=== PATIENT | female | born 1955 | race Caucasian/White ===

== ENCOUNTER 2018-12-27 01:48 | Outpatient (CLI) | payer OTHER, SELFPAY ==
[2018-12-27 09:46] LABS: Glucose 105 mg/dL (70-100); TSH (W/Ref FT4) 3.25 uIU/mL (0.36-3.74)
== END 2018-12-27 02:08 ==
PROVIDERS: PCP Family Medicine; Visit Provider Family Medicine
DX: R73.01 Impaired fasting glucose (principal); E03.9 Hypothyroidism, unspecified
CPT/HCPCS: 36415; 82947; 83036; 84443

== ENCOUNTER 2019-12-20 02:43 | Outpatient (CLI) | payer MEDICARE, OTHER, SELFPAY ==
[2019-12-20 09:36] LABS: Anion Gap 7.5 mmol/L (3-11); BUN 19 mg/dL (7-18); CO2 27.5 mmol/L (21.0-32.0); CREATININE 0.83 mg/dL (0.55-1.02); Chloride 104 mmol/L (98-107); Glucose 105 mg/dL (74-106); Potassium 4.2 mmol/L (3.5-5.1); Sodium 139 mmol/L (136-145); TSH (W/Ref FT4) 4.09 uIU/mL (0.36-3.74)
[2019-12-20 09:48] LABS: Hemoglobin A1C 5.8 % (3.8-5.6)
[2019-12-20 09:54] LABS: FREE T4 1.11 ng/dL (0.76-1.46)
== END 2019-12-20 03:03 ==
PROVIDERS: PCP Family Medicine; Visit Provider Family Medicine
DX: R73.03 Prediabetes (principal); E03.9 Hypothyroidism, unspecified
CPT/HCPCS: 36415; 80048; 83036; 84439; 84443

== ENCOUNTER 2020-01-07 01:03 | Outpatient (CLI) | payer MEDICARE, OTHER, SELFPAY ==
--- NOTE | 2020-01-07 | DI.MAMMO_ITS ---
EXAM: MG MAMMO SCREENING CLINICAL HISTORY: SCREENING, PREVENTIVE [facility],Z00.00 TECHNIQUE: Mammograms were interpreted according to the usual protocol including computer analysis w [employer] system, tomosynthesis and C-view imaging. COMPARISON: FINDINGS: The breasts are of moderate density with fairly symmetrical distribution of fibroglandular tissue. N o dominant mass or clumped microcalcification is identified in either breast. The current examinatio n is compared with previous examinations including August 2017 and there has been no gross interval ch alexandra in appearance in comparison with the prior studies. IMPRESSION: No specific evidence of malignancy at this time. Routine screening examinations are suggested at yea rly intervals in this age group according to the ACS ACR guidelines. BI-RADS Category 1 - Negative Breast Density - Category B - Scattered areas of fibroglandular density
== END 2020-01-07 01:23 ==
PROVIDERS: PCP Family Medicine; Visit Provider Family Medicine
DX: Z12.31 Encounter for screening mammogram for malignant neoplasm of breast (principal); Z00.00 Encounter for general adult medical examination without abnormal findings; R92.2 Inconclusive mammogram
CPT/HCPCS: 77063; 77067

== ENCOUNTER 2020-03-23 11:52 | Outpatient (REF) | payer MEDICARE, OTHER, SELFPAY ==
[2020-03-23 18:26] LABS: TSH (W/Ref FT4) 0.51 uIU/mL (0.36-3.74)
== END 2020-03-23 12:12 ==
LOC: NCHCN 11:52
PROVIDERS: PCP Family Medicine; Visit Provider Family Medicine
DX: E03.9 Hypothyroidism, unspecified (principal)
CPT/HCPCS: 84443

== ENCOUNTER 2021-01-08 14:44 | Outpatient (REF) | payer MEDICARE, OTHER, SELFPAY ==
[2021-01-08 16:27] LABS: Hemoglobin A1C 5.9 % (<5.7)
[2021-01-08 16:34] LABS: Calculated LDL 156 mg/dL (<100); Cholesterol 255 mg/dL (<200); HDL Cholesterol 70 mg/dL (40-60); TSH (W/Ref FT4) 0.19 uIU/mL (0.36-3.74); Triglyceride 149 mg/dL (<150)
[2021-01-08 16:52] LABS: FREE T4 1.21 ng/dL (0.76-1.46)
== END 2021-01-08 14:45 | disposition home or self-care (01) ==
LOC: NCHCN 14:44
PROVIDERS: PCP Family Medicine; Visit Provider Family Medicine
DX: R73.03 Prediabetes (principal); E03.9 Hypothyroidism, unspecified
CPT/HCPCS: 80061; 83036; 84439; 84443

== ENCOUNTER 2021-01-28 01:28 | Outpatient (CLI) | payer MEDICARE, OTHER, SELFPAY ==
--- NOTE | 2021-01-28 | DI.DEXA_ITS ---
Exam(s) XR DEXA BONE DENSITY W/WO GAGE EXAM: XR DEXA BONE DENSITY W/WO GAGE CLINICAL HISTORY: MENOPAUSAL, Z78.0 TECHNIQUE: Routine DEXA evaluation of the lumbar spine, hip, or forearm. COMPARISON: No exams were available for comparison FINDINGS: Performed on a Hologic unit. Lateral image: No compression fracture evident. Lumbar Spine total T-score: -1.4 Hip total T-score:0.2 Independent reading at the femoral neck yields a T-score of -0 3 Forearm total T-score: -0.3 IMPRESSION: Bone mineral density measures in the osteopenia range. Fracture risk is moderate. Note: Any spine fracture indicates 5x risk for subsequent spine fracture and 2x risk for subsequent h ip fracture. World Health Organization criteria for BMD interpretation classify patients: Normal...... T- Score at or above -1.0 Osteopenic... T- Score between -1.0 and -2.5 Osteoporosis... T-Score at or below -2.5
== END 2021-01-28 01:48 ==
PROVIDERS: PCP Family Medicine; Visit Provider Family Medicine
DX: Z78.0 Asymptomatic menopausal state (principal); M85.88 Other specified disorders of bone density and structure, other site
CPT/HCPCS: 77080

== ENCOUNTER 2021-03-15 15:53 | Outpatient (REF) | payer MEDICARE, OTHER, SELFPAY ==
[2021-03-15 20:08] LABS: TSH (W/Ref FT4) 1.22 uIU/mL (0.36-3.74)
== END 2021-03-15 15:54 | disposition home or self-care (01) ==
LOC: NCHCN 15:53
PROVIDERS: PCP Family Medicine; Visit Provider Family Medicine
DX: E03.9 Hypothyroidism, unspecified (principal)
CPT/HCPCS: 84443

== ENCOUNTER → 2021-07-08 09:32 | Outpatient (BNVA) | payer MEDICARE, OTHER, SELFPAY | PROVIDERS: PCP Family Medicine; Referring Provider Family Medicine; Visit Provider Physical Therapy Assistant | DX: Z12.11 Encounter for screening for malignant neoplasm of colon (principal); Z86.010 Personal history of colon polyps ==

== ENCOUNTER 2021-07-23 01:11 | Outpatient (CLI) | payer MEDICARE, OTHER, SELFPAY ==
[2021-07-23 13:16] LABS: Source Nasal/Nares
[2021-07-23 17:39] LABS: COVID-19 PCR Negative (Negative)
== END 2021-07-23 01:12 | disposition home or self-care (01) ==
LOC: LBO 01:11
PROVIDERS: PCP Family Medicine; Visit Provider Surgery
DX: Z20.822 Contact with and (suspected) exposure to COVID-19 (principal)
CPT/HCPCS: 87635; U0005

== ENCOUNTER 2021-07-26 06:14 | Day surgery (SDC) | payer MEDICARE, OTHER, SELFPAY ==
[2021-07-26 06:15] VITALS: BP 165/83; PULSE 86; RESP 16; TEMP 36.5; O2SAT 98
--- NOTE | 2021-07-26 06:27 | W.COLOREPORT ---
Colonoscopy Report Date of procedure: 07/26/21 Pre-op diagnosis general: Colon cancer screening/ Hx of colon polyps Post-op diagnosis procedure note: same (and diverticulosis) Procedure: Colonoscopy Surgeon: Mary Lou Walker Anesthesia Type: General:No Airway Pathology: none sent Complications: None Disposition: same day Indications: The patient is here for Colonoscopy pre-op. Her last screening was in 2016 and was remarkable for tubular adenomatous polyps. She has no family history of colon cancer. She has not had any bowel habit changes. -Discussed colonoscopy bowel prep as well as the procedure. Discussed possible complications of the procedure to include bleeding, pain, perforation, missed small lesion/polyp, sore throat, aspiration and adverse reaction to the medications. Questions were answered to patient?s satisfaction. No guarantees were implied or given.? She will hold her Vitamin D and supplements x 5 days prior to her procedure. I spent 30 minutes in reviewing the record, seeing the patient, providing patient education, answering patient's questions and documenting in the medical record. P// Colonoscopy under sedation. Prep: Miralax/Dulcolax Procedure Start Time: 07:34 Procedure End Time: 07:58 Retraction Time: 10 minutes Findings: Mild Pandiverticulosis Procedure Description: After informed consent was obtained the patient was taken to the procedure room and placed in a left decubitous position. Monitors were applied and a time out was done. The patients name, date of , procedure, allergies to medications and metal in their body was reviewed. The patient was then sedated. Once sedated and comfortable a rectal exam was done. External exam was normal. Internal exam revealed a normal sphincter tone and no palpable masses. The scope was then introduced and retro-flexed. No internal hemorrhoids, polyps or masses were identified on retro-flexion. The scope was then advanced to the cecum without difficulty. The ileocecal vlave and appendiceal orifice were identified. The prep was good. The scope was then slowly retracted over 10 minutes back into the rectum. There were no polyps. There was mild gann- diverticulosis noted. The scope was removed and the patient was woken up and taken back to Same day surgery in stable condition. The patient tolerated the procedure well and there were no immediate complications. Follow up: The patient should follow up in 5 years unless they develop changes in bowel habits or other new gastrointestinal complaints.
--- NOTE | 2021-07-26 06:28 | W.PM.DSUDISC ---
Discharge Plan Disposition Patient Disposition: HOME Condition: Good Discharge Details Reason For Visit: Colonoscopy Attending Provider: Mary Lou Walker Primary Care Provider: Carolyn Lara Home Meds and New Rx's Prescriptions: Continued cholecalciferol (vitamin D3) 10 mcg (400 unit) capsule 10 mcg PO DAILY 0RF herbal allergy med PRN 0RF loratadine 10 mg capsule 10 mg PO DAILY 0RF levothyroxine [Synthroid] 88 mcg tablet 88 mcg PO DAILY 0RF calcium carbonate 600 MG tablet 600 mg PO DAILY 0RF Discontinued bisacodyl [Dulcolax (bisacodyl)] 5 mg tablet,delayed release (DR/EC) 5 mg PO ONCE Qty: 4 0RF Rx Instructions: Take according to provider's instructions for colonoscopy prep. polyethylene glycol 3350 17 gram/dose powder 17 g PO ONCE Qty: 238 0RF Rx Instructions: To be taken as directed by prescriber's office for colonoscopy prep. Discharge Instructions Additional Instructions: Findings: Diverticulosis Follow up: 5 years Please call if you develop: fevers >101.5 Nausea or Vomiting Abdominal pain that is not transient Rectal bleeding that is more then a tbsp A hard abdomen and inability to pass gas DAY SURGERY UNIT POST ENDOSCOPY INSTRUCTIONS Instructions for everyone who is given Anesthesia: For your safety, please do the following for the next 24 Hours: a. Do not drive or operate dangerous equipment b. Do not drink alcohol beverages or use any recreational drugs for the first 24 hours or while taking pain medications. The medications in your body may have a reaction that can be dangerous. c. Do not make any important decisions or sign any important papers 1. Generally there are no restrictions on your activity after a day or so has gone by, but you may feel a bit fatigued for a few days. 2. After you arrive home you may have a light meal and return to a normal diet as you can tolerate it without feeling sick to your stomach. 3. After surgery, you may feel pain or discomfort. This should be only transient, but if it persists please contact your doctor. 4. If there are any questions regarding the findings of your procedure, please feel free to contact your doctor. 6. If you are unable to contact your doctor with a problem, contact the hospital at [phone]. 7. Continue all your regular medications unless directed otherwise. I understand the above instructions and have no questions. Signature of Patient or Responsible Adult Escort Date/Time Name of Responsible Adult Escort Signature of Nurse Date/Time Activity:: Activity as Tolerated Diet:: high fiber diet Discharge Orders Discharge Orders: Discharge Order (Routine); Ordered 07/26/21 Ordered By: Mary Lou Walker
[2021-07-26] MEDS: Lactated Ringers 1,000 ML 80 ML IV (06:54)
--- NOTE | 2021-07-26 07:09 | W.ANESPRE ---
General Info Date of Service Date Performed: 07/26/21 Height: 5 ft 1 in Weight: 74.3 kg Body Mass Index (BMI): 30.9 Surgical Procedure: Operation Date: 07/26/21 07:35 Proposed Procedure Side Surgeon pavan Walker MD Meds Allergies and Home Medications Allergies Allergy/AdvReac Type Severity Reaction Status Date / Time Sulfa (Sulfonamide Allergy Intermediate HIVES Unverified 07/26/21 06:24 Antibiotics) Home Medication Medication Instructions Recorded calcium carbonate 600 mg calcium 600 mg PO DAILY 04/04/17 (1,500 mg) tablet levothyroxine 88 mcg tablet 88 mcg PO DAILY tab-cap 01/14/21 (Synthroid) loratadine 10 mg capsule 10 mg PO DAILY 01/14/21 bisacodyl 5 mg tablet,delayed 5 mg PO ONCE #4 tab 07/08/21 release (Dulcolax (bisacodyl)) cholecalciferol (vitamin D3) 10 10 mcg PO DAILY 07/08/21 mcg (400 unit) capsule polyethylene glycol 3350 17 17 g PO ONCE #238 g 07/08/21 gram/dose oral powder Current Visit Medications: Current Medications Generic Name Dose Route Start Last Admin Trade Name Freq PRN Reason Stop Dose Admin Hyoscyamine Sulfate 0.125 mg 07/26/21 06:29 Hyoscyamine 0.125 Mg Sl/Oral/Chew SL DIRECTED PRN Ringer's Solution 1,000 mls @ 80 mls/hr 07/26/21 06:00 07/26/21 06:54 IV 08/22/21 23:59 80 mls/hr INFUSION IRAIDA Administration IV Miscellaneous Supplies 1 each 07/26/21 06:00 Iv Access IV 08/22/21 23:59 DIRECTED IRAIDA Ondansetron HCl 4 mg 07/26/21 06:29 Ondansetron 4 Mg/2 Ml Vial IVP Q4H PRN PRN Nausea / Vomiting Sodium Chloride 0 ml 07/26/21 06:00 Normal Saline Flush 10 Ml Syr IV 08/22/21 23:59 PRN PRN Sodium Chloride 0 ml 07/26/21 06:00 Normal Saline 10 Ml Vial IJ 08/22/21 23:59 DIRECTED PRN Sterile Water 0 ml 07/26/21 06:00 Water,Injection,Sterile 10 Ml Vial IJ 08/22/21 23:59 DIRECTED PRN PFSH Active Problems Active Problems: Problem Status Onset Code Screening for colon cancer Z12.11 Medical History Medical History Hearing loss of left ear History of adenomatous polyp of colon History of prediabetes Hypothyroidism Migraine headache with aura Obesity Osteoarthritis of hands, bilateral Thyroid nodule TMJ derangement Vertigo Vertigo as late effect of stroke Surgical History Surgical History Cervical Conization/LEEP Colonoscopy - IV Sedation 2004 de querveins Dilation and curettage with biopsy repeat colo (12/14/15) Thyroid (~02/2002) total thyroidectomy Tobacco Smoking/Tobacco Use Status: Former Tobacco Use Alcohol Alcohol Intake: current Alcohol intake frequency: 0-2 drinks per day Alcohol type: hard liquor Substance Use Substance use: Never Substance use type: does not use Vital Signs and Lab Results Vital Signs Most Recent Vital Signs in EMR: Most Recent Vital Signs Temp Pulse Resp BP Pulse Ox 36.5 C 86 16 165/83 H 98 07/26/21 06:15 07/26/21 06:15 07/26/21 06:15 07/26/21 06:15 07/26/21 06:15 Lab Results Blood Type / Crossmatch: No Data to Display Complete Blood Count: No Data to Display Complete Metabolic Panel: No Data to Display Liver Function Panel: No Data to Display Coagulation Panel: No Data to Display Cardiac Panel: No Data to Display Arterial Blood Gas: No Data to Display Venous Blood Gas: No Data to Display Pancreas Panel: No Data to Display Thyroid Panel: No Data to Display Infectious Disease: Coronavirus (COVID-19)(PCR) Negative (Negative) 07/23/21 10:02 07/23/21 Coronavirus 2019 Source Nasal/Nares 07/23/21 10:02 07/23/21 Blood Cultures: No Data to Display Toxicology Panel: No Data to Display Anesthesia Assessment and Plan Anesthesia History Personal History: No History of Anesthesia Complications Family History: No Family History of Anesthesia Complications Exercise Tolerance Exercise Tolerance: Metabolic Equivalents>4 Pertinent Negatives Pertinent Negatives: No Symptoms of GERD Cardiac & Pulmonary Exam Cardiac Exam: Normal S1/S2 Heart Sounds Pulmonary Exam: Clear Bilateral Breath Sounds Implantable Cardiac Device Does patient have a Pacemaker or an ICD?: No Airway Exam Known Difficult Airway: No Mallampati Class: 3 Mouth Opening: Normal (> 3cm) Thyromental Distance: Greater than 3 cm Neck Range of Motion: Full ROM Neck Circumference: Normal Teeth Condition: Normal Dentition ASA Classification ASA Score: ASA 2 Emergency Case?: No NPO Status NPO Status: NPO Clears >2 hours, Solids >8 hours Anesthesia Plan Resuscitation Status: Full Code Anesthesia Technique: General Anesthesia Airway Planned: Endotracheal Tube Monitors Used: Standard Monitors
[2021-07-26 07:12] VITALS: BMI 30.9
[2021-07-26 08:03] VITALS: BP 102/60; PULSE 76; RESP 18; TEMP 36.3; O2SAT 98
--- NOTE | 2021-07-26 08:30 | W.ANESPOSTOP ---
Postoperative Evaluation Date, Time and Location Date Performed: 07/26/21 Time Performed: 08:04 Patient Location: Day Surgery Unit Vital Signs Most Recent Imported Vital Signs: Most Recent Vital Signs Temp Pulse Resp BP Pulse Ox 36.3 C L 76 18 102/60 98 07/26/21 08:03 07/26/21 08:03 07/26/21 08:03 07/26/21 08:03 07/26/21 08:03 Pain Score Most Recent Pain Score: Most Recent Pain Score Pain Level 0 07/26/21 08:03 Assessment Mental Status: Awake (Alert & Oriented to Patient Baseline) Airway and Respiratory Function: Patent airway with normal (patient baseline) respiratory exam Cardiovascular Function: Hemodynamically Stable Hydration Status: Adequately Hydrated Nausea & Vomiting: No Nausea or Vomiting Pain: Pt. Denies Any Pain Peripheral Nerve Block: Patient did not receive a nerve block
[2021-07-26 08:33] VITALS: BP 146/73; PULSE 64; RESP 16; TEMP 36.4; O2SAT 99
== END 2021-07-26 09:00 | disposition home or self-care (01) ==
PROVIDERS: PCP Family Medicine; Visit Provider Surgery
PROC: 0DJD8ZZ Inspection of Lower Intestinal Tract, Via Natural or Artificial Opening Endoscopic (ICD-10-PCS; CPT 45378; principal; 2021-07-26 07:30)
DX: Z12.11 Encounter for screening for malignant neoplasm of colon (principal); Z86.010 Personal history of colon polyps; R73.03 Prediabetes; E03.9 Hypothyroidism, unspecified; K57.30 Diverticulosis of large intestine without perforation or abscess without bleeding
CPT/HCPCS: G0105; J2001; J2405

== ENCOUNTER 2021-12-31 16:18 | Outpatient (REF) | payer MEDICARE, SELFPAY ==
[2021-12-31 18:14] LABS: TSH (W/Ref FT4) 4.99 uIU/mL (0.36-3.74)
[2021-12-31 18:16] LABS: Hemoglobin A1C 5.8 % (<5.7)
[2021-12-31 18:40] LABS: FREE T4 0.94 ng/dL (0.76-1.46)
== END 2021-12-31 16:19 | disposition home or self-care (01) ==
LOC: LBN 16:18
PROVIDERS: PCP Family Medicine; Visit Provider Family Medicine
DX: E03.9 Hypothyroidism, unspecified (principal); R73.03 Prediabetes
CPT/HCPCS: 83036; 84439; 84443

== ENCOUNTER → 2022-01-31 02:19 | Outpatient (CLI) | payer MEDICARE, SELFPAY ==
--- NOTE | 2022-01-31 | DI.MAMMO_ITS ---
Exam(s) MAMMO SCREENING EXAM: MAMMO SCREENING CLINICAL HISTORY: SCREENING, Z12.31 TECHNIQUE: Bilateral full field digital CC and MLO mammographic images were obtained with 3D tomosyn thesis and utilizing computer aided detection (CAD). COMPARISON: Available for comparison. FINDINGS: Masses/Architectural Distortion: None seen. Microcalcifications: No suspicious pleomorphic-type are seen. Skin Thickening/Nipple Retraction: None. IMPRESSION: 1. No significant interval change with no specific features of malignancy noted. 2. Unless there is more urgent need, screening mammography is recommended, as per [place] [employer] guidelines. BI-RADS Category 1 - Negative Breast Density - Category B - Scattered areas of fibroglandular density Breast density category C or D implies that the patient has dense breast tissue. Dense breast tissue is very common and is not abnormal but dense breast tissue can make it harder to find cancer on a ma mmogram. Also, dense breast tissue may increase their breast cancer risk. This information about the result of the mammogram report was provided to the patient to raise their awareness. Use this report when you speak with the patient about their risks for breast cancer, which includes their family hist ory. At that time, you may recommend for more screening tests (Ultrasound or MRI) as they might be us eful based on their risk. A negative radiographic report should not delay biopsy if a dominant or clinically suspicious mass is present. Up to ten percent of cancers are not identified on mammography. A negative report may reinforce clinical impression. Adenosis and dense breasts may obscure an underlying neoplasm. False positive reports average 6 to 10%. Patient will receive a letter notifying them of these results.
== END ==
PROVIDERS: PCP Family Medicine; Visit Provider Family Medicine
DX: Z12.31 Encounter for screening mammogram for malignant neoplasm of breast (principal)
CPT/HCPCS: 77063; 77067

== ENCOUNTER 2022-03-09 16:21 | Outpatient (REF) | payer MEDICARE, SELFPAY ==
[2022-03-09 15:00] LABS: Abs Immature Grans 0.01 10^3/uL (0.0-0.06); Absolute Basophil Count 0.06 10^3/uL (0.0-0.2); Absolute Eosinophil Count 0.16 10^3/uL (0.0-0.7); Absolute Lymphocyte Count 1.48 10^3/uL (1.2-3.4); Absolute Monocyte Count 0.68 10^3/uL (0.1-0.8); Absolute Neutrophil Count 4.15 10^3/uL (1.2-6.7); Basophils % 0.9; Eosinophils % 2.4; HCT 42.8 % (36.0-46.0); HGB 14.1 g/dL (11.2-15.7); Immature Grans % 0.2; Lymphocytes % 22.6; MCHC 32.9 % (32.0-36.0); MCV 91 fL (80-95); Monocytes % 10.4; Neutrophils % 63.5; Platelet Count 302 10^3/uL (130-400); RDW 12.8 % (11.7-14.6); RDW-SD 42.9 fL; WBC 6.54 10^3/uL (4.4-10.8)
[2022-03-09 15:51] LABS: Anion Gap 10.4 mmol/L (3-11); BUN 16 mg/dL (7-18); CO2 26.6 mmol/L (21.0-32.0); CREATININE 0.8 mg/dL (0.55-1.02); Calcium 9.3 mg/dL (8.5-10.1); Chloride 105 mmol/L (98-107); Estimated GFR 80.71 (mL/min/1.73m2); Glucose 103 mg/dL (74-106); Potassium 4.4 mmol/L (3.5-5.1); Sodium 142 mmol/L (136-145); TSH 1.15 uIU/mL (0.36-3.74)
== END 2022-03-09 16:22 | disposition home or self-care (01) ==
LOC: NCHCN 16:21
PROVIDERS: PCP Family Medicine; Visit Provider Family Medicine
DX: E03.9 Hypothyroidism, unspecified (principal)
CPT/HCPCS: 80048; 84443; 85025

== ENCOUNTER 2022-11-02 09:05 | Outpatient (CLI) | payer MEDICARE, OTHER, SELFPAY ==
--- NOTE | 2022-11-02 09:00 | DI.RAD_ITS ---
Exam(s) XR SHOULDER RT COMPLETE 2+V EXAM: XR SHOULDER RT COMPLETE 2+V CLINICAL HISTORY: shoulder pain. TECHNIQUE: 2D digital imaging was performed. Two views. COMPARISON: No exams were available for comparison FINDINGS: BONES: No acute fracture is present. No bony destructive lesion is seen. JOINTS: No dislocation present. Glenohumeral joint is maintained in shows no visible degenerative ch anges. No significant AC joint spurring. There is some spurring at the tip of the acromion and grea ter tuberosity. SOFT TISSUE: Normal. IMPRESSION: Minimal degenerative changes. DATA REPOSITORY: RADIATION DOSE DELIVERED:
== END 2022-11-02 09:06 | disposition home or self-care (01) ==
LOC: DIORS 09:06
PROVIDERS: PCP Family Medicine; Referring Provider Family Medicine; Visit Provider Student in an Organized Health Care Education/Training Program
DX: M75.101 Unspecified rotator cuff tear or rupture of right shoulder, not specified as traumatic
CPT/HCPCS: 99203; 99213; 73030

== ENCOUNTER 2023-01-12 18:47 | Outpatient (REF) | payer MEDICARE, OTHER, SELFPAY ==
[2023-01-12 17:07] LABS: TSH (W/Ref FT4) 0.36 uIU/mL (0.36-3.74)
== END 2023-01-12 18:48 | disposition home or self-care (01) ==
LOC: NCHCN 18:47
PROVIDERS: PCP Family Medicine; Visit Provider Family Medicine
DX: E03.9 Hypothyroidism, unspecified (principal)
CPT/HCPCS: 84443

== ENCOUNTER → 2023-02-07 08:12 | Outpatient (BNVA) | payer MEDICARE, OTHER, SELFPAY | PROVIDERS: PCP Family Medicine; Referring Provider Family Medicine; Visit Provider Student in an Organized Health Care Education/Training Program | DX: M67.921 Unspecified disorder of synovium and tendon, right upper arm (principal) | CPT/HCPCS: 99213 ==

== ENCOUNTER 2024-01-16 17:48 | Outpatient (REF) | payer MEDICARE, OTHER, SELFPAY ==
[2024-01-16 17:05] LABS: TSH 0.46 uIU/Ml (0.36-3.74)
--- OUTSIDE RECORDS SUMMARY | 2024-01-16 18:05 | XMS_ITS | Encounter Summary ---
Author Organization [facility] Address [address] [place] [address] Care Team Providers Care Ply Cutter Name Role Phone Unavailable Primary Care Provider Unavailabl e Encounter Details Date Type Department Care Team (Late st Contact Info) Description 09/13/2004 Results Only [facility] [address] [place] [address] Armaan Oswald MD [address] [place] [address] [place] [phone] Social History Tobacco Use Types Packs/Day Years Used Date Smoking Tobacco: Never Assessed Sex and Gender Information Value Date Recorded Sex Assigned at Not on file Gender Identity Not on file Sexual Orientation Not on file documented as of this encounter Plan of Treatment Not on file documented as of this encounter Procedures Procedure Name Priority Date/Time Associated Diagnosis Comments CYTOPATHOLOGY Routine 09/13/2004 0:00 EDT documented in this encounter Results * CYTOPATHOLOGY (09/13/2004 0:00 EDT) Pathology Report: CYTOPATHOLOGY REPORT Reports generated via electronic interface contain original data; however they are lacking the format of the original report. Caution should be taken when reading/interpreti ng unformatted reports. Name: ? JESSICA LALA ? Accession #: ? [id number] : ? 1955 (Age: 49) ??F ?Collect Date: ? 09/13/2004 Location: ? [facility] ? Receive Date: ? 09/14/2004 Provider: ?ARMAAN OSWALD MD Copy to: ? Specimen/Source: ?ThinPrep Pap Test, Cervix/Endocervix Last Menstrual Period: ? 08/08/04 Menstrual/Pregnanc y Status: ? Irregular ? SPECIMEN ADEQUACY ? Satisfactory for Evaluation - transformation zone component present GENERAL CATEGORIZATION ? Negative for Intraepithelial Lesion or Malignancy INTERPRETATION ? Shift in kaushal present suggestive of bacterial vaginosis. ? Document reviewed and electronically signed by: ? TRIXIE Chirinos(ASCP) ? Report Date: ??09/20/2004 08:53 End of Report [facility] 09/13/2004 09/14/2004 Armaan Oswald MD PATHOLOGY ORDERABLES [facility] [address] [place] [address] documented in this encounter Visit Diagnoses Not on filedocumented in this encounter
--- OUTSIDE RECORDS SUMMARY | 2024-01-16 18:05 | XMS_ITS | Encounter Summary ---
Author Organization [facility] Address [address] [place] [address] Care Team Providers Care Independent Insurance Adjuster Name Role Phone Carolyn Fitzgerald MD Primary Care Provider [phone] Encounter Details Date Type Department Care Team (Late st Contact Info) Description 12/14/2015 Results Only [facility] [phone] Nicole Ordaz MD [address] [place] [address] Social History Tobacco Use Types Packs/Day Years Used Date Smoking Tobacco: Never Assessed Sex and Gender Information Value Date Recorded Sex Assigned at Not on file Gender Identity Not on file Sexual Orientation Not on file documented as of this encounter Plan of Treatment Not on file documented as of this encounter Procedures Procedure Name Priority Date/Time Associated Diagnosis Comments SURGICAL PATHOLOGY Routine 12/14/2015 10 :24 EDT documented in this encounter Results * SURGICAL PATHOLOGY (12/14/2015 10:24 EDT) Pathology Report: SURGICAL PATHOLOGY REPORT Reports generated via electronic interface contain original data; however they are lacking the format of the original report. Caution should be taken when reading/interpret ing unformatted reports. Name: ? JESSICA LALA ? Accession #: ? [id number] ? : ? 1955 (Age: 60) ??F ? Collect Date: ? 12/14/2015 ? Location: ? [facility] ? Receive Date: ? 12/15/2015 ? Provider: NICOLE ORDAZ MD Copy to: CAROLYN FITZGERALD MD ? Final Pathologic Diagnosis: COLON, CECUM, POLYP, BIOPSY: - Tubular adenoma. Document reviewed and electronically signed by: TIAN PECK MD Report ??Date: 12/16/2015 10:41 By the signature above, the attending physician certifies that he/she has personally conducted a gross and/or microscopic examination of the described specimens and rendered or confirmed the above diagnosis. Specimen(s) Received: Cecal polyp Clinical History: Colorectal screening Gross Description: ? Received in formalin labelled with proper patient identification (initials A, C) and cecal polyp is a single pink-chapa tissue fragment (0.6 x 0.2 x 0.2 cm). Submitted intact in 1. [facility] [place] 12/15/2015 11:15 AM End of Report [facility] 12/14/2015 10:2 4 EDT 12/15/2015 10:24 EDT Nicole Ordaz MD PATHOLOGY [facility] [address] [place] [address] documented in this encounter Visit Diagnoses Not on filedocumented in this encounter Care Teams Independent Insurance Adjuster Relationship Specialty Start Date End Date Carolyn Fitzgerald MD [address] [place] [phone] PCP - General 04/10/15 12/16/15 documented as of this encounter
--- OUTSIDE RECORDS SUMMARY | 2024-01-16 18:05 | XMS_ITS | Encounter Summary ---
Author Organization [facility] Address [address] [place] [address] Care Team Providers Care [employer] Physical Education Teacher Name Role Phone Carolyn Lara MD Primary Care Provider [phone] Encounter Details Date Type Department Care Team (Late st Contact Info) Description 11/08/2005 Orders Only [facility] [place] [address] [place] [id number] Layton Higuera MD [address] [place] [address] Social History Tobacco Use Types Packs/Day Years Used Date Smoking Tobacco: Never Assessed Sex and Gender Information Value Date Recorded Sex Assigned at Not on file Gender Identity Not on file Sexual Orientation Not on file documented as of this encounter Plan of Treatment Not on file documented as of this encounter Procedures Procedure Name Priority Date/Time Associated Diagnosis Comments SURGICAL PATHOLOGY REPORT Routine 11/08/2005 6:50 AM EDT documented in this encounter Results * Surgical Pathology Report (11/08/2005 6:50 AM EDT) Surgical Pathology Report [id number] ? Location: The signing pathologist has (i) examined the relevant preparation(s) for the specimen(s) and (ii) rendered or confirmed the diagnosis(es). . ?Pathology Surgical Pathology Final Report Clinical Information Specimen Submitted: A - Right arm 4 mm punch Clinical History: Erythematous crusting scabbing papule ~ 2 years DF Gross Description Labeled/Fixativ e: ? R arm, formalin. Qty/Size/Weight : ?Single punch, 0.4 cm, yellow-chapa skin excised to a ?depth of 0.4 cm. Sections/Proces sing: ??Bisected. ??(T1) ??hemant/EJR Microscopic Description Slides reviewed, microscopic description not recorded. Diagnosis Skin, right arm, punch biopsy: Dermatofibroma, involving peripheral edge of biopsy. CR-0 11/10/05 AJE 11/11/05 Verified by: ? Maryellen Dahl ?Dermatopathol ogist ?(Electronic Signature) The attending pathologist whose signature appears on this report has reviewed all diagnostic slides and has edited the gross and/or microscopic portion of the report in rendering the final pathologic diagnosis. [facility] 11/08/2005 6:50 AM EDT Layton Higuera MD PATHOLOGY/CYTOLOGY O RDERABLES Performing Organization Address City/State/[facility] [place] nm Phone Number [facility] documented in this encounter Visit Diagnoses Not on filedocumented in this encounter Care Teams [employer] Physical Education Teacher Relationship Specialty Start Date End Date Carolyn Lara MD Theresa [address] [place] [address] PCP - General 04/27/10 documented as of this encounter
--- OUTSIDE RECORDS SUMMARY | 2024-01-16 18:05 | XMS_ITS | Encounter Summary ---
Author Organization Health system Address [address] [place] [address] Care Team Providers Care Language And Literature Division Chair Name Role Phone Unavailable Primary Care Provider Unavailabl e Encounter Details Date Type Department Care Team (Late st Contact Info) Description 08/10/2012 Results Only [facility] Laboratory Services - [facility] ([facility] [place] [address] [place], [place] [id number] Carolyn Fitzgerald MD [address] [phone] Social History Tobacco Use Types Packs/Day Years Used Date Smoking Tobacco: Never Assessed Sex and Gender Information Value Date Recorded Sex Assigned at Not on file Gender Identity Not on file Sexual Orientation Not on file documented as of this encounter Plan of Treatment Not on file documented as of this encounter Procedures Procedure Name Priority Date/Time Associated Diagnosis Comments PAP TEST- RESULT ONLY Routine 08/10/2012 0:00 EST documented in this encounter Results * PAP TEST- RESULT ONLY (08/10/2012 0:00 EST) Pathology Report: CYTOPATHOLOGY REPORT Reports generated via electronic interface contain original data; however they are lacking the format of the original report. Caution should be taken when reading/interpreti ng unformatted reports. Name: ? JESSICA LALA ? Accession #: ? [id number] : ? 1955 (Age: 57) ??F ?Collect Date: ? 08/10/2012 Location: ? [facility] ? Receive Date: ? 08/13/2012 Provider: ?CAROLYN FITZGERALD MD Copy to: ? Specimen/Source: ?Pap Test, Vagina, ThinPrep Imaging System with manual evaluation Last Menstrual Period: ? SPECIMEN ADEQUACY ? Satisfactory for Evaluation - assessment of transformation zone component not applicable ( e.g. atrophy, vaginal sample, hysterectomy) GENERAL CATEGORIZATION ? Negative for Intraepithelial Lesion or Malignancy INTERPRETATION ? Shift in kaushal present suggestive of bacterial vaginosis. ? Document reviewed and electronically signed by: ? TRIXIE Parikh(ASCP) ? Report Date: ??08/14/2012 13:19 End of Report [facility] 08/10/2012 08/13/2012 Carolyn Fitzgerald MD PATHOLOGY ORDERABLES Performing Organization Address City/State/[facility] Co de Phone Number MILLER BAILON [address] [place] [address] documented in this encounter Visit Diagnoses Not on filedocumented in this encounter
--- OUTSIDE RECORDS SUMMARY | 2024-01-16 18:05 | XMS_ITS | Clinical Summary ---
Author Organization [facility] Address [address] [place] [address] Care Team Providers Care Housing Director Name Role Phone Peter Walker MD Primary Care Provider + Social History Tobacco Use Types Packs/Day Years Used Date Smoking Tobacco: Never Assessed Sex and Gender Information Value Date Recorded Sex Assigned at Not on file Gender Identity Not on file Sexual Orientation Not on file Plan of Treatment Health Maintenance Due Date Last Done Comments Hepatitis C Screen 1955 RSV Immunization ( o r 60+ Years) (1 - 1-dose 60+ series) 2014 Fall Risk Screening 2019 COVID-19 Vaccine ( season) 2023 Care Teams Housing Director Relationship Specialty Start Date End Date Peter Walker MD [facility] [place] [address] [place] [address] PCP - General 12/17/15
--- OUTSIDE RECORDS SUMMARY | 2024-01-16 18:05 | XMS_ITS | Clinical Summary ---
Author Organization [facility] Address [facility] [place] [address] Care Team Providers Care Pharmaceutical Analyst Name Role Phone Carolyn Lara MD Primary Care Provider [phone] Allergies Active Allergy Reactions Criticality Noted Date Comments Sulfa (Sulfonamide Antibiotics) CIS - Hives Medications Medication Sig Dispensed Refills Start Date End Date Status levothyroxine (SYNTHROID) 125 mcg tablet 09/03/2001 Active ascorbic acid (VITAMIN C) 250 mg tablet 09/03/2001 Active vitamin E 400 unit capsule 09/03/2001 Active MULTIVITAMIN (MULTIPLE VITAMINS ORAL) 09/03/2001 Active VITAMIN B COMPLEX (B COMPLEX VITAMINS ORAL) 02/11/2002 Active Social History Tobacco Use Types Packs/Day Years Used Date Smoking Tobacco: Never Assessed Sex and Gender Information Value Date Recorded Sex Assigned at Not on file Gender Identity Not on file Sexual Orientation Not on file Plan of Treatment Health Maintenance Due Date Last Done Comments CT Colonography 1955 Colonoscopy 1955 Colorectal Cancer Screening 1955 FIT DNA 1955 FIT 1955 Sigmoidoscopy (10 year) with FIT yearly 1955 Sigmoidoscopy 1955 Hepatitis C Screening 1972 Tdap adult 1973 Tetanus vaccine 1973 Breast Cancer Share Decision Needed 1994 Breast Cancer screening 1994 Zoster vaccine (1 of 2) 2004 Advance Directive 2009 Bone Density Scan 2019 Pneumoccocal Vaccine: 65+ (1 of 1 - PCV) 2019 Covid-19 Vaccine (1 - 2022-24 season) 2023 Influenza (Flu) vaccine (1 o f 1 - Influenza standard series) 02/04/2024 Care Teams Pharmaceutical Analyst Relationship Specialty Start Date End Date Carolyn Lara MD [facility] [address] [place] [address] PCP - General 04/27/10
--- OUTSIDE RECORDS SUMMARY | 2024-01-16 18:05 | XMS_ITS | Encounter Summary ---
Author Organization [facility] Address [address] [place] [address] Care Team Providers Care Fish Cleaner Machine Tender Name Role Phone Unavailable Primary Care Provider Unavailabl e Encounter Details Date Type Department Care Team (Late st Contact Info) Description 01/05/2009 Orders Only [facility] Laboratory Services - [facility] [place] [place] [address] [place] [address] Carolyn Fitzgerald MD [address] [phone] Social History Tobacco Use Types [...] Priority Date/Time Associated Diagnosis Comments CYTOPATHOLOGY Routine 01/05/2009 0:00 EDT documented in this encounter Results * CYTOPATHOLOGY (01/05/2009 0:00 EDT) Pathology Report: CYTOPATHOLOGY REPORT ? Reports generated via electronic interface contain original data; ? however they are lacking the format of the original report. ? Caution should be taken when reading/interpreti ng unformatted reports. ? Name: ? JESSICA LALA ? Accession #: ? [id number] ? : ? 1955 (Age: 53) ??F ?Collect Date: ? 01/05/2009 ? Location: ? [facility] ? Receive Date: ? 01/06/2009 ? Provider: ?CAROLYN FITZGERALD MD ? Copy to: ? Specimen/Source: ?Pap Test, Cervix/Endocervix, ThinPrep Imaging System ? with manual evaluation ? Last Menstrual Period: ? Menstrual/Pregnanc y Status: ? Post Menopausal ? Previous Gynecologic Pathology: ? LSIL: cervical 1975 ? Other: ? Additional clinical information: Acute chronic cervicitis ? HPVA - HPV testing requested if ASC-US on the current ThinPrep Pap test. ? SPECIMEN ADEQUACY ? Satisfactory for Evaluation ? - transformation zone component present ? GENERAL CATEGORIZATION ? Negative for Intraepithelial Lesion or Malignancy ? INTERPRETATION ? Shift in kaushal present suggestive of bacterial vaginosis. ? Document reviewed and electronically signed by: ? Lynan Amador, CT(ASCP) ? Report Date: ??01/08/2009 10:23 ? End of Report ? [facility]ILLER BAILON 01/05/2009 01/06/2009 Carolyn Fitzgerald MD PATHOLOGY ORDERABLES [facility] [address] [place] [address] documented in this encounter Visit Diagnoses Not on filedocumented in this encounter
--- OUTSIDE RECORDS SUMMARY | 2024-01-16 18:05 | XMS_ITS | Encounter Summary ---
Author Organization [facility] Address [address] [place] [address] Care Team Providers Care Magazine Feeder Name Role Phone Unavailable Primary Care Provider Unavailabl e Encounter Details Date Type Department Care Team (Late st Contact Info) Description 11/03/2006 Results Only [facility] - [facility] conversion [address] [place] [address] Carolyn Fitzgerald MD [address] [phone] Social History Tobacco Use Types [...] Priority Date/Time Associated Diagnosis Comments CYTOPATHOLOGY Routine 11/03/2006 0:00 EDT documented in this encounter Results * CYTOPATHOLOGY (11/03/2006 0:00 EDT) Pathology Report: CYTOPATHOLOGY REPORT Reports generated via electronic interface contain original data; however they are lacking the format of the original report. Caution should be taken when reading/interpreti ng unformatted reports. Name: ? JESSICA LALA ? Accession #: ? [id number] : ? 1955 (Age: 51) ??F ?Collect Date: ? 11/03/2006 Location: ? [facility] ? Receive Date: ? 11/06/2006 Provider: ?CAROLYN FITZGERALD MD Copy to: ? Specimen/Source: ?ThinPrep Pap Test, Cervix/Endocervix, processed on [employer] ThinPrep Imaging System, with manual evaluation Last Menstrual Period: ? Menstrual/Pregnanc y Status: ? Post Menopausal Previous Gynecologic Pathology: ? Yes: Cervical dysplasia 1975, ??acute chronic cervicitis Other: ? HPVA - HPV testing requested if ASC-US on the current ThinPrep Pap test. ? SPECIMEN ADEQUACY ? Satisfactory for Evaluation - transformation zone component present GENERAL CATEGORIZATION ? Negative for Intraepithelial Lesion or Malignancy INTERPRETATION ? Shift in kaushal present suggestive of bacterial vaginosis. ? Document reviewed and electronically signed by: ? Gayle Vega, SCT(ASCP) ? Report Date: ??11/08/2006 15:20 End of Report [facility]AIL[facility] 11/03/2006 11/06/2006 Carolyn Fitzgerald MD PATHOLOGY ORDERABLES [facility] [address] [place] [address] documented in this encounter Visit Diagnoses Not on filedocumented in this encounter
--- OUTSIDE RECORDS SUMMARY | 2024-01-16 18:05 | XMS_ITS | Encounter Summary ---
Author Organization [facility] [place] [facility] Address [address] [place] [address] Care Team Providers Care Clerical Proofreader Name Role Phone Unavailable Primary Care Provider Unavailabl e Encounter Details Date Type Department Care Team (Late st Contact Info) Description 01/11/2010 Results Only [facility] Laboratory Services - [facility] ([facility] [place]) [address] [place] [address] Carolyn Fitzgerald MD [address] [phone] Social History Tobacco Use Types [...] Priority Date/Time Associated Diagnosis Comments CYTOPATHOLOGY Routine 01/11/2010 0:00 EDT documented in this encounter Results * CYTOPATHOLOGY (01/11/2010 0:00 EDT) Pathology Report: CYTOPATHOLOGY REPORT ? Reports generated via electronic interface contain original data; ? however they are lacking the format of the original report. ? Caution should be taken when reading/interpreti ng unformatted reports. ? Name: ? JESSICA LALA ? Accession #: ? [id number] ? : ? 1955 (Age: 54) ??F ?Collect Date: ? 01/11/2010 ? Location: ? [facility] ? Receive Date: ? 01/12/2010 ? Provider: ?CAROLYN FITZGERALD MD ? Copy to: ? Specimen/Source: ?Pap Test, Cervix/Endocervix, ThinPrep Imaging System ? with manual evaluation ? Last Menstrual Period: ? Menstrual/Pregnanc y Status: ? Post Menopausal ? Previous Gynecologic Pathology: ? ANDER: cervical dysplasia 1975 ? Treatment History: ? Cone biopsy: conization-cervix ? Miscellaneous treatment: D & C ? Miscellaneous treatment: Biopsy ? Other: ? Additional clinical information: Acute cervicitis ? HPVA - HPV testing requested if ASC-US on the current ThinPrep Pap test. ? SPECIMEN ADEQUACY ? Satisfactory for Evaluation ? - transformation zone component absent ? GENERAL CATEGORIZATION ? Negative for Intraepithelial Lesion or Malignancy ? INTERPRETATION ? Shift in kaushal present suggestive of bacterial vaginosis. ? Document reviewed and electronically signed by: ? Jamil Gomez, CT(ASCP) ? Report Date: ??01/13/2010 16:15 ? End of Report ? MILLER BAILON 01/11/2010 01/12/2010 Carolyn Fitzgerald MD PATHOLOGY ORDERABLES [facility] [address] [place] [address] documented in this encounter Visit Diagnoses Not on filedocumented in this encounter
--- OUTSIDE RECORDS SUMMARY | 2024-01-16 18:05 | XMS_ITS | Encounter Summary ---
Author Organization [facility] Address [address] [place] [address] Care Team Providers Care Fractionation Plant Supervisor Name Role Phone Peter Walker MD Primary Care Provider + Encounter Details Date Type Department Care Team (Late st Contact Info) Description 12/15/2016 Results Only [facility]- [facility] [phone] Carolyn Fitzgerald MD [address] [phone] Social History Tobacco Use Types [...] Diagnosis Comments PAP TEST- RESULT ONLY Routine 12/15/2016 0:00 EDT documented in this encounter Results * PAP TEST- RESULT ONLY (12/15/2016 0:00 EDT) Pathology Report: CYTOPATHOLOGY REPORT Reports generated via electronic interface contain original data; however they are lacking the format of the original report. Caution should be taken when reading/interpreti ng unformatted reports. Name: ? JESSICA LALA ? Accession #: ? [id number] ? : ? 1955 (Age: 61) ??F ?Collect Date: ? 12/15/2016 ? Location: ? [facility] ? Receive Date: ? 12/16/2016 ? Provider: CAROLYN FITZGERALD MD Copy to: ? Final Report SPECIMEN ADEQUACY ? Satisfactory for Evaluation - transformation zone component present GENERAL CATEGORIZATION ? Negative for Intraepithelial Lesion or Malignancy INTERPRETATION ? Shift in kaushal present suggestive of bacterial vaginosis. Last Menstrual Period: years Menstrual/Pregnanc y Status: ??Post Menopausal Hormonal/Contracep tive status: None Specimen/Source: ??Pap Test, Cervix, ThinPrep Imaging System with manual evaluation Document reviewed and electronically signed by: ? TRIXIE Parikh(ASCP) ? Report ??Date: 12/26/2016 15:37 HPV with Pap Test ? Date Ordered: ? 12/26/2016 ? Status: ?? Signed Out ?Date Complete: ? 12/27/2016 ? By: ??System Interface ? Date Reported: ? 12/27/2016 ? Interpretation RESULT: Negative for HPV. No E6 or E7 mRNA is detected from HPV types 16,18,31,33,35, 39,45,51,52,56,58, 59,66, and 68 by train control electronic technician mediated amplification. Comments Document reviewed and electronically signed by: ? System Interface ? Report date: 12/27/2016 By the signature above, the attending physician certifies that he/she has personally conducted a gross and/or microscopic examination of the described specimens and rendered or confirmed the above diagnosis. End of Report [facility] 12/15/2016 12/16/2016 Carolyn Fitzgerald MD PATHOLOGY ORDERABLES [facility] [address] [place] [address] documented in this encounter Visit Diagnoses Not on filedocumented in this encounter Care Teams Fractionation Plant Supervisor Relationship Specialty Start Date End Date Peter Walker MD [address] [place] [address] [place] [address] PCP - General 12/17/15 documented as of this encounter
--- OUTSIDE RECORDS SUMMARY | 2024-01-16 18:05 | XMS_ITS | Encounter Summary ---
Author Organization [facility] Address [address] [place] [address] Care Team Providers Care Materials Specialist Name Role Phone Unavailable Primary Care Provider Unavailabl e Encounter Details Date Type Department Care Team (Late st Contact Info) Description 12/08/2006 Results Only [facility] - [facility] conversion [address] [place] [address] Carolyn Fitzgerald MD [address] [phone] Social History Tobacco Use Types [...] Date/Time Associated Diagnosis Comments SURGICAL PATHOLOGY Routine 12/08/2006 0:00 EDT documented in this encounter Results * SURGICAL PATHOLOGY (12/08/2006 0:00 EDT) Pathology Report: SURGICAL PATHOLOGY REPORT Reports generated via electronic interface contain original data; however they are lacking the format of the original report. Caution should be taken when reading/interpreting unformatted reports. Name: ? JESSICA LALA ? Accession #: ? [id number] ? : ? 1955 (Age: 51) ??F ? Collect Date: ? 12/08/2006 ? Location: ? [facility] ? Receive Date: ? 12/11/2006 ? Provider: CAROLYN FITZGERALD MD Copy to: ? Final Pathologic Diagnosis: ? Vulva, punch biopsy: - Lichen sclerosus. Comment: ? The histologic features are those of lichen sclerosus. The inflammatory component is mild. No dysplasia is identified. Clinical correlation is recommended. (Dr. Joyce)/health system Microscopic Description: ? Sections consist of a punch biopsy to the subcutis. The overlying stratum corneum shows compact to basketweave orthokeratosis. The epidermis shows squamatization with vacuolation of the basal layer. No definitive necrotic keratinocytes are identified. Underlying the basement zone is papillary dermal sclerosis. Scattered telangiectasias are present within the papillary dermis along with a mild lymphomononuclear infiltrate. Deeper levels have been examined. (Dr. Joyce)/health system Document reviewed and electronically signed by: Cristine Joyce MD Report ??Date: 12/14/2006 21:23 By the signature above, the attending physician certifies that he/she has personally conducted a gross and/or microscopic examination of the described specimens and rendered or confirmed the above diagnosis. Specimen(s) Received: ? Vulvar punch biopsy Clinical History: ? Vulvar dystrophy; minimal Sxs Gross Description: ? Received in formalin labelled Mukul and vulvar punch biopsy is a punch biopsy of skin measuring 0.2 cm in diameter and 0.3 cm in thickness. The specimen is submitted intact as (A1). ??(Dr. Caceres)/[facility] End of Report MILLER BAILON 12/08/2006 12/11/2006 15: 21 EDT Carolyn Fitzgerald MD PATHOLOGY ORDERABLES [facility] [address] [place] [address] documented in this encounter Visit Diagnoses Not on filedocumented in this encounter
--- OUTSIDE RECORDS SUMMARY | 2024-01-16 18:05 | XMS_ITS | Encounter Summary ---
Author Organization [facility] Address [address] [place] [address] Care Team Providers Care Uniforms Sales Representative Name Role Phone Carolyn Lara MD Primary Care Provider [phone] Encounter Details Date Type Department Care Team (Latest Contact Info) Description 12/14/2015 9:53 EDT - 12/14/2015 23:59 EDT Hospital Encounter [address] [address] Unknown, Provider, Discharge Disposition: Home or Self Care Social History Tobacco Use Types Packs/Day Years Used Date Smoking Tobacco: Never Assessed Sex and Gender Information Value Date Recorded Sex Assigned at Not on file Gender Identity Not on file Sexual Orientation Not on file documented as of this encounter Discharge Disposition Disposition Code Departure Means Destination Home or Self Assisted documented in this encounter Plan of Treatment Not on file documented as of this encounter Visit Diagnoses Not on filedocumented in this encounter Care Teams Uniforms Sales Representative Relationship Specialty Start Date End Date Carolyn Lara MD [address] [place] [phone] PCP - General 04/10/15 12/16/15 documented as of this encounter
--- OUTSIDE RECORDS SUMMARY | 2024-01-16 18:05 | XMS_ITS | Referral Summary ---
Author Organization [facility] Address [address] [place] [address] Care Team Providers Care Stave Saw Operator Name Role Phone Peter Walker MD Primary Care Provider + Social History Tobacco Use Types Packs/Day Years Used Date Smoking Tobacco: Never Assessed Sex and Gender Information Value Date Recorded Sex Assigned at Not on file Gender Identity Not on file Sexual Orientation Not on file Plan of Treatment Not on file Care Teams Stave Saw Operator Relationship Specialty Start Date End Date Peter Walker MD [address] [place] [address] [place] [address] PCP - General 12/17/15
--- OUTSIDE RECORDS SUMMARY | 2024-01-16 18:06 | XMS_ITS | Encounter Summary ---
Author Organization [facility] Address [address] [place] [address] Care Team Providers Care Marine Steam Fitter Helper Name Role Phone Unavailable Primary Care Provider Unavailabl e Encounter Details Date Type Department Care Team (Late st Contact Info) Description 08/05/2002 Results Only [facility] - Maple conversion [address] [place] [address] Carolyn Fitzgerald MD [address] [phone] Social History Tobacco Use Types [...] Priority Date/Time Associated Diagnosis Comments CYTOPATHOLOGY Routine 08/05/2002 0:00 EST documented in this encounter Results * CYTOPATHOLOGY (08/05/2002 0:00 EST) Pathology Report: CYTOPATHOLOGY REPORT Reports generated via electronic interface contain original data; however they are lacking the format of the original report. Caution should be taken when reading/interpreti ng unformatted reports. Name: ? JESSICA LALA ? Accession #: ? [id number] : ? 1955 (Age: 47) ??F ?Collect Date: ? 08/05/2002 Location: ? [facility] ? Receive Date: ? 08/07/2002 Provider: ?CAROLYN FITZGERALD MD Copy to: ? Specimen/Source: ?ThinPrep Pap Test, Cervix/Endocervix Last Menstrual Period: ? 07/25/02 Other: ? HPVA - HPV testing requested if ASC-US on the current ThinPrep Pap test. ? SPECIMEN ADEQUACY ? Satisfactory for Evaluation - transformation zone component present GENERAL CATEGORIZATION ? Negative for Intraepithelial Lesion or Malignancy INTERPRETATION ? Shift in kaushal present suggestive of bacterial vaginosis. ? Document reviewed and electronically signed by: ? Gayle Vega, SCT(ASCP) ? Report Date: ??08/08/2002 15:22 End of Report [facility] 08/05/2002 08/07/2002 Carolyn Fitzgerald MD PATHOLOGY ORDERABLES Performing Organization Address City/State/[facility] Co de Phone Number [facility] [address] [place] [address] documented in this encounter Visit Diagnoses Not on filedocumented in this encounter
--- OUTSIDE RECORDS SUMMARY | 2024-01-16 18:06 | XMS_ITS | Continuity of Care Document ---
Author Organization [place] [facility] [place] [address] Assessment No assessment recorded. Plan of Treatment Reminders Order Date Submit Date Provider Last Modified By Organization Details Last Modified Time Details Appointments Nurse Visit 20 2023 07:30A M Not available Not available Not available Medicare Annual Wellness 40 2023 03:10P M Not available Not available Not available Lab HbA1c (hemoglob in A1c), blood [address] [facility] (Registration ), [address] [place] [address] [place], [address], 01/16/2024 08:10:37 TSH, serum or plasma [address] [facility] (Registration ), [address] [place] [address] [place], [address], 01/16/2024 08:05:25 Referral None recorded. Procedures None recorded. Surgeries None recorded. Imaging None recorded. Medication Orders None recorded. Patient TargetsNo targets recorded. Patient InstructionsNo instructions recorded. Reason for Referral None Reported. Problems Name Status Onset Date Resolution Date Notes Provider Name and Address Organization Details Recorded Time Hypothyroidis m Active 200601/20/2023 - Comments only - Carolyn Lara MD - TSH low normal, continue current dosing of synthroid. Problem Code: E03.9; Problem Code Type: ICD-10; Not Available [facility] 3 05:17:24 Non-toxic uninodular goiter Active 1999 Problem Code: E04.1; Problem Code Type: ICD-10; Not Available [facility] 3 05:17:24 Prediabetes Active 200901/20/2023 - Comments only - Carolyn Lara MD - A1C in fact back in the normal range, will continue to monitor Problem Code: R73.03; Problem Code Type: ICD-10; Not Available [facility] 3 05:17:24 Migraine with aura Active 2012 Problem Code: G43.109; Problem Code Type: ICD-10; Not Available [facility] 3 05:17:24 Temporomandib ular joint disorder Active 2014 Problem Code: M26.69; Problem Code Type: ICD-10; Not Available [facility] 3 05:17:24 Adult health examination Active 201501/20/2023 - Comments only - Carolyn Lara MD - Medicare wellness exam. Personalized prevention plan competed and rev'd with patient. patient was given copy of PPP at conclusion of visit. Does mammograms q2 years. Believes that she had second shingrex at the pharmacy already. Covid and flu vaccines in the fall recommended. Problem Code: Z00.00; Problem Code Type: ICD-10; Not Available [facility] 3 05:17:24 Obesity Active 201501/07/2022 - Comments only - Carolyn Lara MD - Has had trouble following through with calorie tracking- has tried in the past. 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 Problem Code: E66.9; Problem Code Type: ICD-10; Not Available [facility] 3 05:17:24 History of polyp of colon Active 201501/06/2021 - Comments only - Carolyn Lara MD - dur for repeat colonoscopy which is ordered. Problem Code: Z86.010; Problem Code Type: ICD-10; Not Available [facility] 3 05:17:24 Osteoarthriti s Active 201601/06/2020 - Comments only - Carolyn Lara MD - list of OTC things to try given, see patient instructions below. Problem Code: M19.90; Problem Code Type: ICD-10; Not Available [facility] 3 05:17:24 Pre-surgery evaluation Completed 201604/13/2017 03/30/2017 - Comments only - Carolyn Lara MD - She is low risk for low risk cataract surgery, no cardiopulmona ry disease. Due to her complaint of easy bruising (I see no bruises on exam today) I have ordered a CBC, as she has not had one. Problem Code: Z01.818; Problem Code Type: ICD-10; Not Available [facility] 3 05:17:24 Skin finding Completed 201604/13/2017 Problem Code: R23.8; Problem Code Type: ICD-10; Not Available [facility] 3 05:17:25 Pain in left lower limb Completed 201710/02/2017 09/25/2017 - Comments only - Carolyn Lara MD - Pain is below the knee, in the tibia. Given that the dizziness persisted for 3 weeks, we will check x-ray, though would be unlikely to have a fracture that does not bother with weightbearing . If x-ray is negative assume this is a bone bruise which will take time to heal. Problem Code: M79.605; Problem Code Type: ICD-10; Not Available [facility] 3 05:17:25 Dizziness and giddiness Active 201901/06/2020 - Comments only - Carolyn Lara MD - very brief episodes with position change, if getting worse/ more frequent to let me know and would refer to PT. Problem Code: R42; Problem Code Type: ICD-10; Not Available [facility] 3 05:17:25 Menopause present Completed 202001/20/2021 Problem Code: Z78.0; Problem Code Type: ICD-10; Not Available [facility] 3 05:17:25 Screening mammography Active 2021 Problem Code: Z12.31; Problem Code Type: ICD-10; Not Available [facility] 3 05:17:25 Fatigue Completed 202101/21/2022 01/07/2022 - Comments only - Carolyn Lara MD - Incrase synthroid dosage, check CBC and BMP with follow up labs. Problem Code: R53.83; Problem Code Type: ICD-10; Not Available [facility] 3 05:17:25 Insomnia Active 202101/20/2023 - Comments only - Carolyn Lara MD - periodic, she feels that she manages this okay Problem Code: G47.00; Problem Code Type: ICD-10; Not Available [facility] 3 05:17:25 Fatigue Active 202101/20/2023 - Comments only - Carolyn Lara MD - can always reconsider sleep study in future if worsening. Problem Code: R53.83; Problem Code Type: ICD-10; Not Available [facility] 3 05:17:25 Impaired fasting glycemia Completed 200903/01/2023 01/01/2018 - Comments only - Carolyn Lara MD - remains in prediabetic range, congratulated her on her efforts to remain healthy, [facility] prediabetic program, strength exercises. Problem Code: R73.01; Problem Code Type: ICD-10; Not Available [facility] 3 05:17:26 Arthralgia of temporomandib ular joint Completed 201403/01/2023 Problem Code: 524.62; Problem Code Type: ICD-9; Not Available [facility] 3 05:17:26 Hearing loss of left ear Completed 201901/20/2023 Problem Code: H91.92; Problem Code Type: ICD-10; Not Available [facility] 3 05:17:26 Lichen sclerosus Completed 200601/01/2018 Problem Code: L90.0; Problem Code Type: ICD-10; Not Available [facility] 3 05:17:26 Lichen sclerosus et atrophicus Completed 200603/01/2023 Not Available [facility] 3 05:17:26 Problem Notes None recorded. Medical Equipment None Reported. Allergies Allergen ID Allergen Name Allergen Category Reaction Reaction Severity Criticality Documentation Date Start Date Code Code System Note Provider Name and Address Organization Details Recorded Time 25813 sulfadiaz ine medicatio n hives mild Not available 04/14/20232005 33816 RxNorm HIVES Not Available [facility] 3 16:30:08 Medications Name Sig Start Date Stop Date Status Note LastModified by Organization Details LastModified Time metronidazo le 0.75 % (37.5 mg/5 gram) vaginal gel Insert nightly into vagina x 5.nights 03/30 completed Not Available Not Available Not Available Macrobid 100 mg capsule 1 CAP BID 07/19 completed Not Available Not Available Not Available calcium 600 mg (as calcium carbonate 1,500 mg) tablet 1 chewable a day 01/05 completed Not Available Not Available Not Available famciclovir 500 mg tablet 1TAB q8h 08/16 completed Not Available Not Available Not Available Synthroid 88 mcg tablet Take 1 tab by mouth 5 times a week active Not Available Not Available No t Available Synthroid 75 mcg tablet Take 1 tablet by mouth as directed 2 days a week active Not Available Not Available No t Available gabapentin 100 mg capsule Take 1 cap by mouth three times daily 08/16 completed Not Available Not Available Not Available ergocalcife rol (vitamin D2) 1,250 mcg (50,000 unit) capsule 1 .twice weekly 09/20 completed Not Available Not Available Not Available loratadine 10 mg tablet Take 1 tab by mouth daily Take as needed. 2019 active Not Available Not Available Not Avai lable Temovate 0.05 % topical cream APPLY BID 11/22 completed Not Available Not Available Not Available Estrace 0.01% (0.1 mg/gram) vaginal cream 1APP PV 11/22 completed Not Available Not Available Not Available gabapentin 100 mg tablet 1 TAB three times daily 2014 active Not Available Not Available Not Avai lable Vitamin D 1 qd 11/22 completed Not Available Not Available Not Available multivitami n 11/29 completed Not Available Not Available Not Available FreeStyle Lite Strips 1STRIP three times daily 08/10 completed Not Available Not Available Not Available Vitals None Recorded Social History None recorded. Functional Status None recorded. Mental Status None recorded. Family History Relationship Description Onset Age of this Age Resolved Age Notes Mother Family history of Hypertension Notes:*Problem: Mother: Dece ased age 94 HTN, angina, refused pacemaker. Father: age 72 cause cardiac, diabetic Sisters: two: one is diabetic, CAD s/p CABG, fibromyalgia Brothers: one, CAD s/p MD and CABG, atrial fibrillation Children: none Family History of: Hypertension: yes Coronary heart disease: yes Diabetes mellitus: yes Breast cancer: no Colorectal cancer: no Alcoholism: no Mental illness: no Medical History No medical history recorded. Gynecological HistoryNo gynecological history recorded. Obstetrics History GPAL:G 0 P 0 0 0 0 Immunizations Vaccine Type Date Status Provider Name and Address Organization Details Recorded Time Td (adult), 2 Lf tetanus toxoid, preservative free, adsorbed 12/15/2016 completed Not Available [facility] 04/14/2023 06:21:09 Tdap 11/03/2006 completed Not Available [facility] 06:21:09 zoster live 08/15/2014 completed Not Available [facility] 04/14/2023 06:21:09 Td(adult) unspecified formulation 12/25/1997 completed Not Available [facility] 04/14/2023 06:21:09 Influenza, split virus, quadrivalent, PF 03/23/2020 completed Not Available [facility] 04/14/2023 06:21:09 Influenza, split virus, quadrivalent, PF 05/17/2019 completed Not Available [facility] 04/14/2023 06:21:09 zoster recombinant 12/20/2021 completed Not Available [facility] 04/14/2023 06:21:09 zoster, unspecified formulation 10/07/2021 completed Not Available [facility] 04/14/2023 06:21:10 Influenza, high-dose, quadrivalent, PF 03/09/2022 completed Not Available [facility] 04/14/2023 06:21:10 COVID-19, mRNA, LNP-S, PF, 100 mcg/0.5mL dose or 50 mcg/0.25mL dose 08/16/2020 completed Not Available [facility] 04/14/2023 06:21:10 COVID-19, mRNA, LNP-S, PF, 100 mcg/0.5mL dose or 50 mcg/0.25mL dose 09/13/2020 completed Not Available [facility] 04/14/2023 06:21:10 COVID-19, mRNA, LNP-S, PF, 100 mcg/0.5mL dose or 50 mcg/0.25mL dose 05/19/2021 completed Not Available [facility] 04/14/2023 06:21:10 COVID-19, mRNA, LNP-S, bivalent, PF, 30 mcg/0.3 mL dose 03/18/2022 completed Not Available [facility] 04/14/20 06:21:10 pneumococcal polysaccharide PPV23 01/06/2020 completed Not Available [facility] 2022 06:21:10 influenza, unspecified formulation 02/13/2008 completed Not Available [facility] 04/14/2023 06:21:10 Influenza, high-dose, quadrivalent, PF 03/31/2023 completed Not Available [facility] 06/16/2023 05:31:43 COVID-19, mRNA, LNP-S, PF, benjamin-sucrose, 30 mcg/0.3 mL 03/31/2023 completed Not Available [facility] 06/16/2023 05:31:43 Past Encounters Encounter ID Performer Location Encounter Start Date Encounter Closed Date Diagnosis/Indication Diagnosis SNOMED-CT Code [id number] RANDALL SMITH RN [address] [place] [facility] [place] [address] 01/16/2024 07:32:14 01/16/2024 07:56:48 Hypothyroidism 56141936 Prediabetes 457541119 Health Concerns Section Related Observation LastModified by Organization Detai ls LastModified Time None Recorded Concern Status LastModified by Organization Details LastModified Time None Recorded Payers Encounter Date Sequence Insurance Name Policy Number Policy Romano Covered Member ID Romano Member ID Guarantor Name 01/16/2024 1 [place] - [id number] (MEDICARE) Jessica Gilman [id number] Jessica Gilman 01/16/2024 2 [employer] SUPPLEMENTAL - [employer]URANCE (MEDICARE SUPPLEMENT) Jessica Gilman [id number] Jessica Gilman OBGyn Episode No OBEpisode recorded.
--- OUTSIDE RECORDS SUMMARY | 2024-01-16 18:06 | XMS_ITS | Encounter Summary ---
Author Organization [facility] Address [address] [place] [address] Care Team Providers Care History Card Clerk Name Role Phone Unavailable Primary Care Provider Unavailabl e Encounter Details Date Type Department Care Team (Late st Contact Info) Description 10/06/[address] [facility] [address] [place] [address] Armaan Oswald MD [address] [place] [address] [place] [id number] Social History Tobacco Use Types Packs/Day [...] Date/Time Associated Diagnosis Comments SURGICAL PATHOLOGY Routine 10/06/2003 0:00 EDT documented in this encounter Results * SURGICAL PATHOLOGY (10/06/2003 0:00 EDT) Pathology Report: SURGICAL PATHOLOGY REPORT Reports generated via electronic interface contain original data; however they are lacking the format of the original report. Caution should be taken when reading/interpreti ng unformatted reports. Name: ? JESSICA LALA ? Accession #: ? [id number] ? : ? 1955 (Age: 48) ??F ? Collect Date: ? 10/06/2003 ? Location: ? [facility] ? Receive Date: ? 10/06/2003 ? Provider: ARMAAN OSWALD MD Copy to: FATIMAH FITZGERALD MD ? Final Pathologic Diagnosis: A. ?Endocervix, curettage: 1. ?Acute and chronic cervicitis. 2. ?Fragments of endocervical tissue with squamous metaplasia. 3. ?Fragments of benign squamous epithelium. B. ?Endometrium, biopsy: 1. ?Early secretory endometrium, circa day 17. C. ?Endometrium, curettage: 1. ?Early secretory endometrium, circa day 17. Document reviewed and electronically signed by: Cuong Ennis MD Report ??Date: 10/08/2003 16:27 By the signature above, the attending physician certifies that he/she has personally conducted a gross and/or microscopic examination of the described specimens and rendered or confirmed the above diagnosis. Specimen(s) Received: A. ?Endocervical curettings B. ?Endometrial bx C. ?Endometrial curettings Clinical History: ? Cervical stenosis, menstrual irregularity, R/O hyperplasia Gross Description: ? Received in formalin labelled Mukul and endocervical curettings are multiple fragments of chapa-pink soft tissue admixed with a minimal amount of blood clot, which measures 0.7 x 0.7 x 0.4 cm in aggregate. ??The specimen is entirely submitted as (A). ?? Received in formalin labelled Mukul and endometrial bx are multiple fragments of chapa-pink soft tissue admixed with a minimal amount of blood clot, which measures 2.0 x 1.0 x 0.4 cm in aggregate. ??The specimen is entirely submitted as (B). ?? Received in formalin labelled Mukul and endometrial curettings are multiple fragments of chapa-pink soft tissue admixed with blood clot, which measures 1.5 x 0.7 x 0.3 cm in aggregate. ??The specimen is entirely submitted as (C). ??(Dr. Obrien)/tmg ?? End of Report MILLER BAILON 10/06/2003 10/06/2003 14: 57 EDT Armaan Oswald MD PATHOLOGY ORDERABLES [facility]ILLER BAILON [address] [place] [address] documented in this encounter Visit Diagnoses Not on filedocumented in this encounter
--- OUTSIDE RECORDS SUMMARY | 2024-01-16 18:06 | XMS_ITS | Encounter Summary ---
Author Organization [facility] Address [address] [place] [address] Care Team Providers Care Animal Behaviorist Name Role Phone Unavailable Primary Care Provider Unavailabl e Encounter Details Date Type Department Care Team (Late st Contact Info) Description 02/21/2000 Results Only [facility] [address] [place] [address] Carolyn Fitzgerald MD [address] [address] Social History Tobacco Use Types [...] Priority Date/Time Associated Diagnosis Comments CYTOPATHOLOGY Routine 02/21/2000 0:00 EDT documented in this encounter Results * CYTOPATHOLOGY (02/21/2000 0:00 EDT) Pathology Report: CYTOPATHOLOGY REPORT Reports generated via electronic interface contain original data; however they are lacking the format of the original report. Caution should be taken when reading/interpreti ng unformatted reports. Name: ? JESSICA LALA ? Accession #: ? [id number] : ? 1955 (Age: 44) ??F ?Collect Date: ? 02/21/2000 Location: ? [facility] ? Receive Date: ? 02/23/2000 Provider: ?CAROLYN FITZGERALD MD Copy to: ? Specimen/Source: ?Conventional Pap Test, Cervix/Endocervix Last Menstrual Period: ? 02/07/00 Previous Gynecologic Pathology: ? ANDER: Cervical . ? SPECIMEN ADEQUACY ? Satisfactory for evaluation but limited by an absence of a transformation zone component. GENERAL CATEGORIZATION ? Benign Cellular Changes DESCRIPTIVE DIAGNOSIS ? Predominance of coccobacilli present consistent with shift in vaginal kaushal. ? Document reviewed and electronically signed by: ? TRIXIE Coleman(ASCP) ? Report Date: ??02/24/2000 07:30 End of Report MILLER BAILON 02/21/2000 02/23/2000 Carolyn Fitzgerald MD PATHOLOGY ORDERABLES Performing Organization Address City/State/[facility] Co de Phone Number MILLER BAILON [address] [place] [address] documented in this encounter Visit Diagnoses Not on filedocumented in this encounter
--- OUTSIDE RECORDS SUMMARY | 2024-01-16 18:06 | XMS_ITS | Data Portability ---
Author Organization [place] - [facility] Address [place] [address] Assessment No assessment recorded. Plan of Treatment Reminders Order Date Submit Date Provider Last Modified By Organization Details Last Modified Time Details Appointments Nurse Visit 20 2023 07:30A M Not available Not available Not available Medicare Annual Wellness 40 2023 03:10P M Not available Not available Not available Lab HbA1c (hemoglob in A1c), blood 2023 024 [facility] (Registration ), [address] [place] [address] [place], [address], 01/16/2024 08:10:37 TSH, serum or plasma 2023 024 [facility] (Registration ), [address] [place] [address] [place], [address], 01/16/2024 08:05:25 Referral None recorded. Procedures None [...] E03.9; Problem Code Type: ICD-10; Not Available [facility] 3 05:17:24 Non-toxic uninodular goiter Active 1999 Problem Code: E04.1; Problem Code Type: ICD-10; Not Available [facility] 3 05:17:24 Prediabetes Active 200901/20/2023 - Comments only - Carolyn Lara MD - A1C in fact back in the normal range, will continue to monitor Problem Code: R73.03; Problem Code Type: ICD-10; Not Available [facility] 3 05:17:24 Migraine with aura Active 2012 Problem Code: G43.109; Problem Code Type: ICD-10; Not Available [facility] 3 05:17:24 Temporomandib ular joint disorder Active 2014 Problem Code: M26.69; Problem Code Type: ICD-10; Not Available [facility] 3 05:17:24 Adult health examination Active 201501/20/2023 [...] Z00.00; Problem Code Type: ICD-10; Not Available [facility] 3 05:17:24 Obesity Active 201501/07/2022 - Comments only - Carolyn Lara MD - Has had trouble following through with calorie tracking- has tried in the past. 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 Problem Code: E66.9; Problem Code Type: ICD-10; Not Available [facility] 3 05:17:24 History of polyp of colon Active 201501/06/2021 - Comments only - Carolyn Lara MD - dur for repeat colonoscopy which is ordered. Problem Code: Z86.010; Problem Code Type: ICD-10; Not Available [facility] 3 05:17:24 Osteoarthriti s Active 201601/06/2020 - Comments only - Carolyn Lara MD - list of OTC things to try given, see patient instructions below. Problem Code: M19.90; Problem Code Type: ICD-10; Not Available [facility] 3 05:17:24 Pre-surgery evaluation Completed 201604/13/2017 03/30/2017 [...] Code Type: ICD-10; Not Available [facility] 3 05:17:24 Skin finding Completed 201604/13/2017 Problem Code: R23.8; Problem Code Type: ICD-10; Not Available [facility] 3 05:17:25 Pain in left lower limb [...] Code Type: ICD-10; Not Available [facility] 3 05:17:25 Dizziness and giddiness Active 201901/06/2020 - Comments only - Carolyn Lara MD - very brief episodes with position change, if getting worse/ more frequent to let me know and would refer to PT. Problem Code: R42; Problem Code Type: ICD-10; Not Available [facility] 3 05:17:25 Menopause present Completed 202001/20/2021 Problem Code: Z78.0; Problem Code Type: ICD-10; Not Available [facility] 3 05:17:25 Screening mammography Active 2021 Problem Code: Z12.31; Problem Code Type: ICD-10; Not Available [facility] 3 05:17:25 Fatigue Completed 202101/21/2022 01/07/2022 - Comments only - Carolyn Lara MD - Incrase synthroid dosage, check CBC and BMP with follow up labs. Problem Code: R53.83; Problem Code Type: ICD-10; Not Available [facility] 3 05:17:25 Insomnia Active 202101/20/2023 - Comments only - Carolyn Lara MD - periodic, she feels that she manages this okay Problem Code: G47.00; Problem Code Type: ICD-10; Not Available [facility] 3 05:17:25 Fatigue Active 202101/20/2023 - Comments only - Carolyn Lara MD - can always reconsider sleep study in future if worsening. Problem Code: R53.83; Problem Code Type: ICD-10; Not Available [facility] 3 05:17:25 Impaired fasting glycemia Completed 200903/01/2023 01/01/2018 - Comments only - Carolyn Lara MD - remains in prediabetic range, congratulated her on her efforts to remain healthy, [facility] prediabetic program, strength exercises. Problem Code: R73.01; Problem Code Type: ICD-10; Not Available [facility] 3 05:17:26 Arthralgia of temporomandib ular joint Completed 201403/01/2023 Problem Code: 524.62; Problem Code Type: ICD-9; Not Available [facility] 3 05:17:26 Hearing loss of left ear Completed 201901/20/2023 Problem Code: H91.92; Problem Code Type: ICD-10; Not Available [facility] 3 05:17:26 Lichen sclerosus Completed 200601/01/2018 Problem Code: L90.0; Problem Code Type: ICD-10; Not Available [facility] 3 05:17:26 Lichen sclerosus et atrophicus Completed 200603/01/2023 Not Available [facility] 3 05:17:26 Problem Notes None recorded. Medical Equipment None Reported. Allergies Allergen ID Allergen Name Allergen Category Reaction Reaction Severity Criticality Documentation Date Start Date Code Code System Note Provider Name and Address Organization Details Recorded Time 21170 sulfadiaz ine medicatio n hives mild Not available 04/14/20232005 96991 RxNorm HIVES Not Available [facility] 3 16:30:08 Medications Name Sig Start Date [...] s/p CABG, fibromyalgia Brothers: one, CAD s/p MT and CABG, atrial fibrillation Children: none Family [...] adsorbed 12/15/2016 completed Not Available [facility] 04/14/2023 06:21:09 Tdap 11/03/2006 completed Not Available [facility] 06:21:09 zoster live 08/15/2014 completed Not Available [facility] 04/14/2023 06:21:09 Td(adult) unspecified formulation 12/25/1997 completed Not Available [facility] 04/14/2023 06:21:09 Influenza, split virus, quadrivalent, PF 03/23/2020 completed Not Available [facility] 04/14/2023 06:21:09 Influenza, split virus, quadrivalent, PF 05/17/2019 completed Not Available [facility] 04/14/2023 06:21:09 zoster recombinant 12/20/2021 completed Not Available [facility] 04/14/2023 06:21:09 zoster, unspecified formulation 10/07/2021 completed Not Available [facility] 04/14/2023 06:21:10 Influenza, high-dose, quadrivalent, PF 03/09/2022 completed Not Available [facility] 04/14/2023 06:21:10 COVID-19, mRNA, LNP-S, PF, 100 mcg/0.5mL dose or 50 mcg/0.25mL dose 08/16/2020 completed Not Available [facility] 04/14/2023 06:21:10 COVID-19, mRNA, LNP-S, PF, 100 mcg/0.5mL dose or 50 mcg/0.25mL dose 09/13/2020 completed Not Available [facility] 04/14/2023 06:21:10 COVID-19, mRNA, LNP-S, PF, 100 mcg/0.5mL dose or 50 mcg/0.25mL dose 05/19/2021 completed Not Available [facility] 04/14/2023 06:21:10 COVID-19, mRNA, LNP-S, bivalent, PF, 30 mcg/0.3 mL dose 03/18/2022 completed Not Available [facility] 04/14/20 06:21:10 pneumococcal polysaccharide PPV23 01/06/2020 completed Not Available [facility] 2022 06:21:10 influenza, unspecified formulation 02/13/2008 completed Not Available [facility] 04/14/2023 06:21:10 Influenza, high-dose, quadrivalent, PF 03/31/2023 completed Not Available [facility] 06/16/2023 05:31:43 COVID-19, mRNA, LNP-S, PF, benjamin-sucrose, 30 mcg/0.3 mL 03/31/2023 completed Not Available [facility] 06/16/2023 05:31:43 Past Encounters Encounter ID Performer Location Encounter Start Date Encounter Closed Date Diagnosis/Indication Diagnosis SNOMED-CT Code [id number] RANDALL SMITH RN [address] [place] [address] 01/16/2024 07:32:14 01/16/2024 07:56:48 Hypothyroidism [id number] Prediabetes [id number] Health Concerns Section Related Observation LastModified by Organization Detai ls LastModified Time None Recorded Concern Status LastModified by Organization Details LastModified Time None Recorded Advance Directives Directive None Recorded Payers Encounter Date Sequence Insurance Name Policy Number Policy Romano Covered Member ID Romano Member ID Guarantor Name 01/16/2024 1 [place] - [facility] (MEDICARE) Jessica Gilman [id number] Jessica Gilman 01/16/2024 2 [employer] SUPPLEMENTAL - [employer]UR[employer] (MEDICARE SUPPLEMENT) Jessica Gilman [id number] Jessica Gilman OBGyn Episode No OBEpisode recorded.
--- OUTSIDE RECORDS SUMMARY | 2024-01-16 18:06 | XMS_ITS | Encounter Summary ---
Author Organization [facility] Address [address] [place] [address] Care Team Providers Care School Health Aide Name Role Phone Unavailable Primary Care Provider Unavailabl e Encounter Details Date Type Department Care Team (Late st Contact Info) Description 08/14/2003 Results Only [facility] [address] [place] [address] Carolyn Fitzgerald MD [address] [address] Social History Tobacco Use Types [...] Priority Date/Time Associated Diagnosis Comments CYTOPATHOLOGY Routine 08/14/2003 0:00 EST documented in this encounter Results * CYTOPATHOLOGY (08/14/2003 0:00 EST) Pathology Report: CYTOPATHOLOGY REPORT Reports generated via electronic interface contain original data; however they are lacking the format of the original report. Caution should be taken when reading/interpreti ng unformatted reports. Name: ? JESSICA LALA ? Accession #: ? [id number] : ? 1955 (Age: 48) ??F ?Collect Date: ? 08/14/2003 Location: ? [facility] ? Receive Date: ? 08/18/2003 Provider: ?CAROLYN FITZGERALD MD Copy to: ? Specimen/Source: ?ThinPrep Pap Test, Cervix Last Menstrual Period: ? 1975 Previous Gynecologic Pathology: ? Yes: 1974 Treatment History: ? Cone biopsy: 1975 Other: ? HPVA - HPV testing requested if ASC-US on the current ThinPrep Pap test. ? SPECIMEN ADEQUACY ? Satisfactory for Evaluation - transformation zone component present GENERAL CATEGORIZATION ? Negative for Intraepithelial Lesion or Malignancy INTERPRETATION ? Shift in kaushal present suggestive of bacterial vaginosis. ? Document reviewed and electronically signed by: ? Georgia Edmonds, TRIXIE(ASCP) ? Report Date: ??08/21/2003 11:08 End of Report [facility] 08/14/2003 08/18/2003 Carolyn Fitzgerald MD PATHOLOGY ORDERABLES Performing Organization Address City/State/[facility] Co de Phone Number [facility] [address] [place] [address] documented in this encounter Visit Diagnoses Not on filedocumented in this encounter
--- OUTSIDE RECORDS SUMMARY | 2024-01-16 18:06 | XMS_ITS | Encounter Summary ---
Author Organization [facility] Address [address] [place] [address] Care Team Providers Care Ruffling Hemmer Automatic Name Role Phone Unavailable Primary Care Provider Unavailabl e Encounter Details Date Type Department Care Team (Late st Contact Info) Description 05/10/2001 Results Only [facility] - [facility] [address] [place] [address] Carolyn Fitzgerald MD [address] [address] Social History Tobacco Use Types [...] Priority Date/Time Associated Diagnosis Comments CYTOPATHOLOGY Routine 05/10/2001 0:00 EST documented in this encounter Results * CYTOPATHOLOGY (05/10/2001 0:00 EST) Pathology Report: CYTOPATHOLOGY REPORT Reports generated via electronic interface contain original data; however they are lacking the format of the original report. Caution should be taken when reading/interpreti ng unformatted reports. Name: ? JESSICA LALA ? Accession #: ? [id number] : ? 1955 (Age: 45) ??F ?Collect Date: ? 05/10/2001 Location: ? [facility] ? Receive Date: ? 05/15/2001 Provider: ?CAROLYN FITZGERALD MD Copy to: ? Specimen/Source: ?Conventional Pap Test, Cervix/Endocervix Last Menstrual Period: ? 05/05/01 Treatment History: ? Miscellaneous treatment: Conization of cervix 1975 ? SPECIMEN ADEQUACY ? Satisfactory for evaluation. GENERAL CATEGORIZATION ? Benign Cellular Changes DESCRIPTIVE DIAGNOSIS ? Predominance of coccobacilli present consistent with shift in vaginal kaushal. ? Document reviewed and electronically signed by: ? TRIXIE Parikh(ASCP) ? Report Date: ??05/16/2001 14:21 End of Report [facility] 05/10/2001 05/15/2001 Carolyn Fitzgerald MD PATHOLOGY ORDERABLES [facility] [address] [place] [address] documented in this encounter Visit Diagnoses Not on filedocumented in this encounter
--- OUTSIDE RECORDS SUMMARY | 2024-01-16 18:06 | XMS_ITS | Encounter Summary ---
Author Organization [facility] Address [address] [place] [address] Care Team Providers Care Assembler Bicycle Name Role Phone Unavailable Primary Care Provider Unavailabl e Encounter Details Date Type Department Care Team (Late st Contact Info) Description 04/03/2000 Results Only [facility] - [facility] [address] [place] [address] Maira Vera MD [address] [place], [place] [id number] Social History Tobacco Use Types Packs/Day Years Used Date Smoking Tobacco: Never Assessed Sex and Gender Information Value Date Recorded Sex Assigned at Not on file Gender Identity Not on file Sexual Orientation Not on file documented as of this encounter Plan of Treatment Not on file documented as of this encounter Procedures Procedure Name Priority Date/Time Associated Diagnosis Comments CYTOPATHOLOGY Routine 04/03/2000 0:00 EST documented in this encounter Results * CYTOPATHOLOGY (04/03/2000 0:00 EST) Pathology Report: CYTOPATHOLOGY REPORT Reports generated via electronic interface contain original data; however they are lacking the format of the original report. Caution should be taken when reading/interpreti ng unformatted reports. Name: ? JESSICA LALA ? Accession #: ? [id number] : ? 1955 (Age: 44) ??F ?Collect Date: ? 04/03/2000 Location: ? [facility] ? Receive Date: ? 04/04/2000 Provider: ? MAIRA VERA MD Copy to: ?FATIMAH FITZGERALD MD ? CYTOLOGIC DIAGNOSIS: ? Right Thyroid nodule, Fine Needle Aspiration: - Cannot rule out follicular neoplasm. ??See comment. ? COMMENT: ? The specimen is composed mostly of blood with a few small groups of follicular cells in a predominately microfollicular pattern. ??No chunky colloid is present. ??The hypocellular nature of the specimen precludes a definitive diagnosis. ??Clinical correlation and follow-up is recommended. ??(Dr. Ivory)/[facility] Document reviewed and electronically signed by: ? WILLA IVORY MD Report Date: ??04/05/2000 16:04 By the signature above, the attending physician certifies that he/she has personally conducted a gross and/or microscopic examination of the described specimens and rendered or confirmed the above diagnosis. Specimen Type: ? Right Thyroid nodule, Fine Needle Aspiration Clinical History: ? Right cold thyroid nodule. ? Gross Description: ? 4 fixed prepared slides, and 1 tube of Cytolyt were received and processed. ? End of Report [facility] 04/03/2000 04/04/2000 15: 24 EST Maira Vera MD PATHOLOGY ORDERABLES [facility] [address] [place] [address] documented in this encounter Visit Diagnoses Not on filedocumented in this encounter
[2024-01-16 18:16] LABS: Hemoglobin A1C 5.8 % (<5.7)
== END 2024-01-16 17:49 | disposition home or self-care (01) ==
LOC: NCHCN 17:48
PROVIDERS: PCP Family Medicine; Visit Provider Family Medicine
DX: E03.9 Hypothyroidism, unspecified (principal); R73.03 Prediabetes
CPT/HCPCS: 83036; 84443

== ENCOUNTER 2024-02-07 00:34 | Outpatient (CLI) | payer MEDICARE, OTHER, SELFPAY ==
--- NOTE | 2024-02-07 | DI.MAMMO_ITS ---
Exam(s) MAMMO SCREENING EXAM: MAMMO SCREENING CLINICAL HISTORY: SCREENING, Z12.31 TECHNIQUE: Bilateral full field digital CC and MLO mammographic images were obtained with 3D tomosyn thesis and utilizing computer aided detection (CAD). COMPARISON: Available for comparison. FINDINGS: Masses/Architectural Distortion: None seen. Microcalcifications: No suspicious pleomorphic-type are seen. Skin Thickening/Nipple Retraction: None. IMPRESSION: 1. No significant interval change with no specific features of malignancy noted. 2. Unless there is more urgent need, screening mammography is recommended, as per [employer] guidelines. BI-RADS Category 1 - Negative Breast Density - Category B - Scattered areas of fibroglandular density Breast density category C or D implies that the patient has dense breast tissue. Dense breast tissue is very common and is not abnormal but dense breast tissue can make it harder to find cancer on a ma mmogram. Also, dense breast tissue may increase their breast cancer risk. This information about the result of the mammogram report was provided to the patient to raise their awareness. Use this report when you speak with the patient about their risks for breast cancer, which includes their family hist ory. At that time, you may recommend for more screening tests (Ultrasound or MRI) as they might be us eful based on their risk. A negative radiographic report should not delay biopsy if a dominant or clinically suspicious mass is present. Up to ten percent of cancers are not identified on mammography. A negative report may reinforce clinical impression. Adenosis and dense breasts may obscure an underlying neoplasm. False positive reports average 6 to 10%. Patient will receive a letter notifying them of these results.
== END 2024-02-07 00:54 ==
LOC: DI 00:34
PROVIDERS: PCP Family Medicine; Visit Provider Family Medicine
DX: Z12.31 Encounter for screening mammogram for malignant neoplasm of breast (principal)
CPT/HCPCS: 77063; 77067

== ENCOUNTER 2024-02-08 02:27 | Outpatient (CLI) | payer MEDICARE, OTHER, SELFPAY ==
--- NOTE | 2024-02-08 | DI.DEXA_ITS ---
Exam(s) XR DEXA BONE DENSITY W/WO GAGE EXAM: XR DEXA BONE DENSITY W/WO GAGE CLINICAL HISTORY: Osteopenia, M85.88 TECHNIQUE: COMPARISON: CR XR DEXA BONE DENSITY W/WO GAGE from 01/28/2021 FINDINGS: Lateral Spine Image: Unremarkable. No compression deformities identified. Left hip: Total T-Score: -0.3. This compares to 0.2 on the prior examination. Total Z-Score: 1.2 T- and Z-scores: Within normal limits. Lumbar Spine: Total T-Score: -0.9. This compares to -1.4 on the prior examination. Total Z-Score: 1.2 T- and Z-scores: Within normal limits. IMPRESSION: No evidence of osteoporosis.
== END 2024-02-08 02:47 ==
LOC: DI 02:27
PROVIDERS: PCP Family Medicine; Visit Provider Family Medicine
DX: M85.88 Other specified disorders of bone density and structure, other site (principal); Z13.820 Encounter for screening for osteoporosis
CPT/HCPCS: 77080

== ENCOUNTER 2025-01-31 16:01 | Outpatient (REF) | payer MEDICARE, OTHER, SELFPAY ==
[2025-01-31 15:53] LABS: Hemoglobin A1C 5.7 % (<5.7)
[2025-01-31 16:03] LABS: ALT 30 U/L (14-59); AST 18 U/L (15-37); Albumin 3.9 g/dL (3.4-5.0); Alkaline Phosphatase 66 U/L (46-116); Anion Gap 7.6 mmol/L (3-11); BUN 21 mg/dL (7-18); Bilirubin, Total 0.5 mg/dL (0.2-1.0); CO2 30.4 mmol/L (21.0-32.0); Calcium 9.3 mg/dL (8.5-10.1); Chloride 105 mmol/L (98-107); Estimated GFR 92.98 (mL/min/1.73m2); Glucose 106 mg/dL (74-106); Potassium 4.5 mmol/L (3.5-5.1); Sodium 143 mmol/L (136-145); TSH (W/Ref FT4) 0.19 uIU/mL (0.36-3.74); Total Protein 6.8 g/dL (6.4-8.2)
== END 2025-01-31 16:02 | disposition home or self-care (01) ==
LOC: NCHCN 16:01
PROVIDERS: PCP Family Medicine; Visit Provider Family Medicine
DX: R73.03 Prediabetes (principal); E03.9 Hypothyroidism, unspecified
CPT/HCPCS: 80053; 83036; 84439; 84443

== ENCOUNTER 2025-05-12 13:01 | Outpatient (REF) | payer MEDICARE, OTHER, SELFPAY ==
[2025-05-12 16:31] LABS: TSH (W/Ref FT4) 0.85 uIU/mL (0.55-4.78)
== END 2025-05-12 13:02 | disposition home or self-care (01) ==
LOC: NCHCN 13:01
PROVIDERS: PCP Family Medicine; Visit Provider Family Medicine
DX: E03.9 Hypothyroidism, unspecified (principal)
CPT/HCPCS: 84443